=== PATIENT | female | born 1970 | race Hispanic/Latino ===

== ENCOUNTER 2023-05-09 16:16 | Emergency (ER) | payer BC ==
[~2023-05-09] VITALS: Ht 154.9 cm; Wt 74.8 kg
[~2023-05-09 16:16] MED LIST: LEVO-70 PO; METR-172 PO
[2023-05-09 17:09] LABS: BASOPHILS % (AUTO) 0.4 % (0.0-5.0); EOSINOPHILS % (AUTO) 1.6 % (0.0-8.0); HEMATOCRIT 40.5 % (36-48); LYMPHOCYTES % (AUTO) 30.8 % (21.0-51.0); MEAN CORPUSCULAR HEMOGLOBIN 29.1 pg (27.0-33.0); MEAN CORPUSCULAR HGB CONC 32.6 g/dL (32.0-36.0); MEAN CORPUSCULAR VOLUME 89.2 fL (79-99); MONOCYTES % (AUTO) 6.2 % (3.0-13.0); NEUTROPHILS % (AUTO) 60.7 % (40.0-77.0); PLATELET COUNT (AUTO) 246 K/uL (130-400); RED BLOOD CELL COUNT(AUTO) 4.54 MIL/uL (4.00-5.50); RED CELL DISTRIBUTION WIDTH 13.6 % (11.0-15.5); WHITE BLOOD COUNT (AUTO) 10.1 K/uL (4.8-10.8)
[2023-05-09 17:32] LABS: CREATININE 0.8 mg/dL (0.5-1.5); POTASSIUM 3.6 mmol/L (3.5-5.1)
[2023-05-09 17:37] LABS: TOTAL PROTEIN, SERUM 5.7 g/dL (6.0-8.3)
[2023-05-09] MEDS ORDERED: AMOX875T2 PO (17:52)
[2023-05-09 18:10] VITALS: BP 126/72; PULSE 72; RESP 18; O2SAT 98
== END 2023-05-09 18:20 | disposition home or self-care (01) ==
LOC: EDH 16:16
DX: K04.7 Periapical abscess without sinus (principal); Z79.899 Other long term (current) drug therapy
CPT/HCPCS: 36415; 80053; 83605; 85025